=== PATIENT | female | born 1965 | race Two or more races ===

== ENCOUNTER 2019-06-26 07:22 | Outpatient (CLI) | payer OTHER | END 2019-06-26 23:59 | disposition home or self-care (01) | LOC: RAD 07:22 | DX: Z11.1 Encounter for screening for respiratory tuberculosis (principal); Z87.891 Personal history of nicotine dependence | CPT/HCPCS: 71045 ==

== ENCOUNTER 2019-09-18 11:32 | Outpatient (CLI) | payer OTHER ==
[2019-09-18 12:51] LABS: BASOPHILS % (AUTO) 0.4 % (0-1); EOSINOPHILS # (AUTO) 0.1 X10'3 (0-0.9); HEMATOCRIT 43.9 % (35.0-45.0); HEMOGLOBIN 14.7 g/dl (12.0-16.0); LYMPHOCYTES % (AUTO) 48.5 % (21-51); MEAN CORPUSCULAR HEMOGLOBIN 29.7 PG (27.0-31.0); MEAN CORPUSCULAR HGB CONC 33.5 g/dL (33.0-36.5); MEAN CORPUSCULAR VOLUME 88.8 FL (78-98); MEAN PLATELET VOLUME 8.2 FL (7.4-10.4); MONOCYTES # (AUTO) 0.4 X10'3 (0-0.9); MONOCYTES % (AUTO) 6.6 % (2-12); NEUTROPHILS # (AUTO) 2.6 X10'3 (1.8-7.7); NEUTROPHILS % (AUTO) 42.5 % (42-75); PLATELET COUNT 298 X10'3 (140-440); RED BLOOD COUNT 4.94 X10'6 (4.20-5.60); WHITE BLOOD COUNT 6.2 X10'3 (4.5-11.0)
[2019-09-18 12:56] LABS: CLARITY,URINE CLEAR (Clear); COLOR,URINE STRAW (Yellow); GLUCOSE, URINE NEGATIVE (Neg); KETONES,URINE NEGATIVE (Neg); LEUKOCYTE ESTERASE ,URINE NEGATIVE (Neg); NITRITES, URINE NEGATIVE (Neg); OCCULT BLOOD,URINE NEGATIVE (Neg); PH,URINE 6.5 (4.8-8.0); PROTEIN,URINE NEGATIVE (Neg); UROBILINOGEN,URINE 0.2 E.U/dL (0.2-1.0)
[2019-09-18 12:57] LABS: UA COLLECTION TYPE CLN CATCH MIDSTREAM
[2019-09-18 13:16] LABS: ALANINE AMINOTRANSFERASE 48 U/L (12-78); ALKALINE PHOSPHATASE 72 IU/L (46-116); ANION GAP 8 (8-16); ASPARTATE AMINO TRANSFERASE 27 U/L (10-37); BILIRUBIN,TOTAL 0.4 MG/DL (0.1-1.0); BLOOD UREA NITROGEN 12 MG/DL (7-18); CHLORIDE 106 MMOL/L (99-107); CHOL/HDL RATIO 3.9 (0.00-4.99); CHOLESTEROL 109 MG/DL (0-200); CREATININE 0.75 MG/DL (0.40-0.90); GLUCOSE 110 MG/DL (70-104); HDL CHOLESTEROL 28 MG/DL (35-60); LDL CHOLESTEROL 71 MG/DL (50-100); POTASSIUM 3.7 MMOL/L (3.5-5.1); SODIUM 144 MMOL/L (135-145); TOTAL CARBON DIOXIDE 30.3 MMOL/L (24-32); TOTAL PROTEIN 7.9 G/DL (6.4-8.2); TRIGLYCERIDES 96 MG/DL (20-135); eGFR 80 ML/MIN
== END 2019-09-18 23:59 | disposition home or self-care (01) ==
LOC: RAD 11:32
PROVIDERS: ATTEND Family Medicine
DX: S83.281A Other tear of lateral meniscus, current injury, right knee, initial encounter (principal); M75.101 Unspecified rotator cuff tear or rupture of right shoulder, not specified as traumatic; M17.11 Unilateral primary osteoarthritis, right knee; M25.461 Effusion, right knee; G47.30 Sleep apnea, unspecified; E07.9 Disorder of thyroid, unspecified; Z68.41 Body mass index [BMI] 40.0-44.9, adult; K75.0 Abscess of liver; Z76.89 Persons encountering health services in other specified circumstances; X58.XXXA Exposure to other specified factors, initial encounter; Y93.89 Activity, other specified; Y92.89 Other specified places as the place of occurrence of the external cause; Y99.8 Other external cause status
CPT/HCPCS: 36415; 73221; 73721; 80053; 80061; 81003; 84436; 84443; 85025

== ENCOUNTER 2020-03-17 11:49 | Day surgery (SDC) | payer BC ==
[2020-03-11 10:27] LABS: BASOPHILS % (AUTO) 0.5 % (0-1); EOSINOPHILS # (AUTO) 0.1 X10'3 (0-0.9); EOSINOPHILS % (AUTO) 1.9 % (0-6); LYMPHOCYTES # (AUTO) 3.2 X10'3 (1.1-4.8); LYMPHOCYTES % (AUTO) 47.4 % (21-51); MEAN CORPUSCULAR HEMOGLOBIN 30.2 PG (27.0-31.0); MEAN CORPUSCULAR HGB CONC 33.3 g/dL (33.0-36.5); MEAN CORPUSCULAR VOLUME 90.8 FL (78-98); MEAN PLATELET VOLUME 8.3 FL (7.4-10.4); MONOCYTES # (AUTO) 0.6 X10'3 (0-0.9); MONOCYTES % (AUTO) 9.3 % (2-12); NEUTROPHILS # (AUTO) 2.8 X10'3 (1.8-7.7); NEUTROPHILS % (AUTO) 40.9 % (42-75); PRE OP HEMATOCRIT 44.1 % (35.0-45.0); PRE OP HEMOGLOBIN 14.7 g/dL (12.0-16.0); PRE OP PLATELET COUNT 265 X10'3 (140-440); RED BLOOD COUNT 4.86 X10'6 (4.20-5.60); RED CELL DISTRIBUTION WIDTH 14.2 % (11.5-14.5)
[2020-03-11 10:31] LABS: ALBUMIN 4.1 G/DL (3.4-5.0); ALKALINE PHOSPHATASE 62 IU/L (46-116); BLOOD UREA NITROGEN 17 MG/DL (7-18); BUN/CREATININE RATIO 19.5 (6.6-38.0); CHLORIDE 104 MMOL/L (99-107); CREATININE 0.87 MG/DL (0.40-0.90); PRE OP ALT 43 U/L (30-65); PRE OP ANION GAP 8 (8-16); PRE OP AST 26 U/L (10-37); PRE OP BILIRUB, TOTAL 0.4 MG/DL (0.0-1.0); PRE OP GLUCOSE 117 MG/DL (70-104); PRE OP SODIUM 141 MMOL/L (135-145); TOTAL CARBON DIOXIDE 29.5 MMOL/L (24-32); TOTAL PROTEIN 8.2 G/DL (6.4-8.2); eGFR 68 ML/MIN
[~2020-03-17] VITALS: Ht 170.2 cm; Wt 116.2 kg
[2020-03-17] VITALS (14 sets, daily range): BP systolic 118–145; BP diastolic 56–81
[~2020-03-17 11:49] MED LIST: ALLO100T PO; ASPI-1053 PO; CHOL400T57 PO; FURO-150 PO; LACT1CAP65 PO; LEVO100T PO; LEVO137T24 PO; MAGN400C PO; MULT-1085 PO; NABU500T2 PO; NIA500ERT PO; OMEG1CAP2 PO; ORPH100T2 PO; PSYL3.4P5 PO; acetaminophen 325mg tablet PO ONE; ascorbic acid 500mg tablet PO ONE; celeCOXIB 100mg capsule PO ONE; famotidine 20mg tablet PO ONE; gabapentin 300mg capsule PO ONE; levoFLOXACIN-Levaquin 750MG/D5 150 ML IV ONE; metoclopramide 5 mg/ml inj IV ONE; ringers solution, lacted 1,000 ML IV SCH; vancomycin 1,500 MG in NS 300ml IV soln IV ONE
[2020-03-17] MEDS ORDERED: BUPIVAcaine/PF 2.5 mg/ml (0.25%) 30ml vial ONE (15:20)
[2020-03-17] MEDS ORDERED: triamcinolone acetonide 40mg/ml inj ONE (15:20)
[2020-03-17] MEDS ORDERED: fentaNYL/PF 50MCG/1 ML 2ML syringe ONE (15:31)
[2020-03-17] MEDS ORDERED: midazolam 2 mg/2 ml injection ONE (15:31)
[2020-03-17] MEDS ORDERED: sevoflurane 250ml liquid IH ONE (15:34)
[2020-03-17] MEDS ORDERED: propofol inj 20 ML IV ONE (16:02)
[2020-03-17] MEDS ORDERED: ondansetron/PF 4mg/2ml inj ONE (16:02)
[2020-03-17] MEDS ORDERED: LIDOcaine 2% (20mg/ml) 5ml vial ONE (16:02)
[2020-03-17] MEDS ORDERED: dexamethasone sod phosphate 4mg/ml inj. ONE (16:02)
--- NOTE | 2020-03-17 16:34 | NUR ---
Received from OR via [facility], accompanied by Anesthesiologist Cecilia and report given by Anesthesiolgist. Right knee wrapped, good pedal pulses. O2 sats 98% on 10L and all VS WNL. 20G IV LR IVF at 100cc/hr. Will continue to monirot clsoely, ice to right knee.
[2020-03-17] MEDS ORDERED: ringers solution, lacted 1,000 ML IV SCH (16:45)
[2020-03-17] MEDS ORDERED: proCHLORperazine 10 MG/2 ml inj IV PRN (16:45)
[2020-03-17] MEDS ORDERED: morphine 4 MG/ML inj SYRINge IV PRN (16:45)
[2020-03-17] MEDS ORDERED: ondansetron/PF 4mg/2ml inj IV PRN (16:45)
[2020-03-17] MEDS ORDERED: meperidine/PF 25mg/ml syringe IV PRN ×2 (16:45)
[2020-03-17] MEDS ORDERED: morphine 2 MG/ML inj. syringe IV PRN (16:45)
[2020-03-17] MEDS: meperidine/PF 25mg/ml syringe IV PRN ×2 (17:10→17:44)
--- NOTE | 2020-03-17 19:00 | NUR ---
called from pharmacy to state that the prescription needed clarification. I spoke with pharmacist and then attempted to call Dr Matson multiple times before pharmacy closed at 1900 to clarify order but he did not answer the phone. I then spoke with Dr Mccarty who gave me a new order for the same medication with the correct clarification to call in to the pharmacy which I did. Will await call back from Dr Matson to explain what happened. Dr Mccarty also states he will relay the rectification and thankful to be able to help. Now awaiting to arrive at hospital for pickup after meds are filled.
--- NOTE | 2020-03-17 19:24 | NUR ---
PATIENT A&OX4, DENIES PAIN, V/S WNL, NEUROVASCULAR CHECKS INTACT, 20G PIV D/C WITH NO COMPLICATIONS OBSERVED, DRESSING TO RIGHT KNEE CDI W/ICE PACK, SCD OFF. I HAVE REVIEWED D/C INSTRUCTIONS WITH PATIENT AND FAMILY AND THEY HAVE VERBALIZED UNDERSTANDING. PATIENT D/C HOME WITH ALL BELONGINGS AND FAMILY GAVE TRANSPORT HOME.
== END 2020-03-17 19:24 | disposition home or self-care (01) ==
LOC: PAS 11:49
PROVIDERS: ATTEND Orthopaedic Surgery
DX: S83.231A Complex tear of medial meniscus, current injury, right knee, initial encounter (principal); S83.281A Other tear of lateral meniscus, current injury, right knee, initial encounter; M94.261 Chondromalacia, right knee; E03.9 Hypothyroidism, unspecified; M10.9 Gout, unspecified; G47.33 Obstructive sleep apnea (adult) (pediatric); K21.9 Gastro-esophageal reflux disease without esophagitis; M17.0 Bilateral primary osteoarthritis of knee; E66.01 Morbid (severe) obesity due to excess calories; Z68.41 Body mass index [BMI] 40.0-44.9, adult; Z79.899 Other long term (current) drug therapy; Z79.82 Long term (current) use of aspirin; Z88.0 Allergy status to penicillin; Z88.2 Allergy status to sulfonamides; Z88.5 Allergy status to narcotic agent; Z90.49 Acquired absence of other specified parts of digestive tract; Z98.890 Other specified postprocedural states; Z11.59 Encounter for screening for other viral diseases; Z87.891 Personal history of nicotine dependence; X58.XXXA Exposure to other specified factors, initial encounter; Y93.89 Activity, other specified; Y92.89 Other specified places as the place of occurrence of the external cause; Y99.8 Other external cause status
CPT/HCPCS: 29873; 29879; 29880; 36415; 80053; 82948; 85025; J1100; J1956; J2001; J2175; J2250; J2405; J2704; J2765; J3010; J3301; J3370; J3490; J7040; U0003; A4215; A4618; A6250; A6449; A7000; J7120

== ENCOUNTER → 2020-04-08 | Outpatient (CLI) | payer BC ==
[~2020-04-08] MED LIST changes: -acetaminophen 325mg tablet PO ONE; -ascorbic acid 500mg tablet PO ONE; -celeCOXIB 100mg capsule PO ONE; -famotidine 20mg tablet PO ONE; -gabapentin 300mg capsule PO ONE; -levoFLOXACIN-Levaquin 750MG/D5 150 ML IV ONE; -metoclopramide 5 mg/ml inj IV ONE; -ringers solution, lacted 1,000 ML IV SCH; -vancomycin 1,500 MG in NS 300ml IV soln IV ONE
== END | disposition home or self-care (01) ==
LOC: LAB 11:43
PROVIDERS: ATTEND Family Medicine
DX: E03.9 Hypothyroidism, unspecified (principal); E07.9 Disorder of thyroid, unspecified
CPT/HCPCS: 36415; 84439; 84443

== ENCOUNTER 2020-04-15 08:13 | Day surgery (SDC) | payer BC ==
[~2020-04-15] VITALS: Ht 170.2 cm; Wt 115.0 kg
[2020-04-15 08:17] VITALS: BP 133/65
[2020-04-15] MEDS ORDERED: MIDAZolam 5mg/5ml vial ONE (08:22)
[2020-04-15] MEDS ORDERED: fentaNYL/PF 50MCG/1 ML 2ML syringe ONE (08:22)
[2020-04-15] MEDS ORDERED: POLY119P2 PO (08:33)
[2020-04-15] MEDS ORDERED: POTA10CA44 PO (08:35)
[2020-04-15] MEDS ORDERED: HYDR12.55 PO (08:36)
[2020-04-15] MEDS ORDERED: FLUT9.9S INH (08:37)
[2020-04-15 09:53] VITALS: BP 124/71
[2020-04-15 10:03] VITALS: BP 116/73
[2020-04-15 10:13] VITALS: BP 124/75
[2020-04-15 10:23] VITALS: BP 127/77
== END 2020-04-15 10:45 | disposition home or self-care (01) ==
LOC: GI LAB 08:13
PROVIDERS: ATTEND Internal Medicine Gastroenterology
DX: Z12.11 Encounter for screening for malignant neoplasm of colon (principal); D12.3 Benign neoplasm of transverse colon; K62.1 Rectal polyp; K64.8 Other hemorrhoids; Z86.010 Personal history of colon polyps
CPT/HCPCS: 45380; 45385; 99152; C1773; J2250; J3010; J7040; 99153; A4620

== ENCOUNTER → 2020-05-27 | Outpatient (CLI) | payer BC ==
[~2020-05-27] MED LIST changes: +FLUT9.9S INH; +HYDR12.55 PO; +NABU-134 PO; -NABU500T2 PO; +POLY119P2 PO; +POTA10CA44 PO; -PSYL3.4P5 PO
== END | disposition home or self-care (01) ==
LOC: CARD DIAG 12:39
PROVIDERS: ATTEND Family Medicine
DX: I08.3 Combined rheumatic disorders of mitral, aortic and tricuspid valves (principal); I65.23 Occlusion and stenosis of bilateral carotid arteries; I77.1 Stricture of artery; I10 Essential (primary) hypertension
CPT/HCPCS: 93306; 93880

== ENCOUNTER 2020-07-29 11:45 | Outpatient (CLI) | payer BC ==
[2020-07-29 12:06] LABS: MEAN PLATELET VOLUME 7.8 FL (7.4-10.4)
[2020-07-29 12:07] LABS: BASOPHILS % (AUTO) 0.6 % (0-1); EOSINOPHILS # (AUTO) 0.1 X10'3 (0-0.9); EOSINOPHILS % (AUTO) 1.4 % (0-6); HEMATOCRIT 43.6 % (35.0-45.0); HEMOGLOBIN 14.7 g/dl (12.0-16.0); LYMPHOCYTES % (AUTO) 41.6 % (21-51); MEAN CORPUSCULAR HEMOGLOBIN 29.9 PG (27.0-31.0); MEAN CORPUSCULAR HGB CONC 33.7 g/dL (33.0-36.5); MONOCYTES # (AUTO) 0.6 X10'3 (0-0.9); MONOCYTES % (AUTO) 8.7 % (2-12); NEUTROPHILS # (AUTO) 3.4 X10'3 (1.8-7.7); NEUTROPHILS % (AUTO) 47.7 % (42-75); PLATELET COUNT 283 X10'3 (140-440); RED CELL DISTRIBUTION WIDTH 13.5 % (11.5-14.5); WHITE BLOOD COUNT 7.2 X10'3 (4.5-11.0)
[2020-07-29 12:29] LABS: ALANINE AMINOTRANSFERASE 45 U/L (12-78); ALBUMIN 3.9 G/DL (3.4-5.0); ALKALINE PHOSPHATASE 62 IU/L (46-116); ANION GAP 8 (8-16); ASPARTATE AMINO TRANSFERASE 26 U/L (10-37); BILIRUBIN,TOTAL 0.3 MG/DL (0.1-1.0); BLOOD UREA NITROGEN 25 MG/DL (7-18); BUN/CREATININE RATIO 28.1 (6.6-38.0); CALCIUM 9.9 MG/DL (8.5-10.1); CHLORIDE 106 MMOL/L (99-107); CREATININE 0.89 MG/DL (0.40-0.90); GLUCOSE 149 MG/DL (70-104); POTASSIUM 3.8 MMOL/L (3.5-5.1); SODIUM 143 MMOL/L (135-145); TOTAL CARBON DIOXIDE 29.5 MMOL/L (24-32); TOTAL PROTEIN 7.9 G/DL (6.4-8.2); eGFR 66 ML/MIN
== END 2020-07-29 23:59 | disposition home or self-care (01) ==
LOC: LAB 11:45
PROVIDERS: ATTEND Internal Medicine
DX: R76.12 Nonspecific reaction to cell mediated immunity measurement of gamma interferon antigen response without active tuberculosis (principal)
CPT/HCPCS: 80053; 85025

== ENCOUNTER 2020-08-27 10:08 | Outpatient (CLI) | payer BC ==
[2020-08-27 11:01] LABS: BASOPHILS % (AUTO) 0.6 % (0-1); EOSINOPHILS # (AUTO) 0.2 X10'3 (0-0.9); EOSINOPHILS % (AUTO) 2.9 % (0-6); HEMATOCRIT 45.6 % (35.0-45.0); HEMOGLOBIN 15.5 g/dl (12.0-16.0); MEAN CORPUSCULAR HEMOGLOBIN 30.3 PG (27.0-31.0); MEAN CORPUSCULAR HGB CONC 33.9 g/dL (33.0-36.5); MEAN CORPUSCULAR VOLUME 89.3 FL (78-98); MEAN PLATELET VOLUME 8.2 FL (7.4-10.4); MONOCYTES # (AUTO) 0.6 X10'3 (0-0.9); MONOCYTES % (AUTO) 10.6 % (2-12); NEUTROPHILS # (AUTO) 2.5 X10'3 (1.8-7.7); NEUTROPHILS % (AUTO) 47.9 % (42-75); PLATELET COUNT 287 X10'3 (140-440); RED CELL DISTRIBUTION WIDTH 13.6 % (11.5-14.5); WHITE BLOOD COUNT 5.2 X10'3 (4.5-11.0)
[2020-08-27 11:18] LABS: ALANINE AMINOTRANSFERASE 35 U/L (12-78); ALBUMIN 3.9 G/DL (3.4-5.0); ALBUMIN/GLOBULIN RATIO 0.9 (1.1-1.5); ALKALINE PHOSPHATASE 73 IU/L (46-116); ANION GAP 9 (8-16); ASPARTATE AMINO TRANSFERASE 30 U/L (10-37); BILIRUBIN,TOTAL 0.6 MG/DL (0.1-1.0); BLOOD UREA NITROGEN 10 MG/DL (7-18); BUN/CREATININE RATIO 13.3 (6.6-38.0); CALCIUM 8.8 MG/DL (8.5-10.1); CHLORIDE 104 MMOL/L (99-107); CREATININE 0.75 MG/DL (0.40-0.90); GLUCOSE 150 MG/DL (70-104); POTASSIUM 4.3 MMOL/L (3.5-5.1); SODIUM 139 MMOL/L (135-145); TOTAL PROTEIN 8.2 G/DL (6.4-8.2); eGFR 80 ML/MIN
== END 2020-08-27 23:59 | disposition home or self-care (01) ==
LOC: LAB 10:08
PROVIDERS: ATTEND Family Medicine
DX: I10 Essential (primary) hypertension (principal); R76.12 Nonspecific reaction to cell mediated immunity measurement of gamma interferon antigen response without active tuberculosis
CPT/HCPCS: 36415; 80053; 84439; 84443; 85025

== ENCOUNTER 2021-02-10 09:17 | Outpatient (CLI) | payer BC ==
[~2021-02-10 09:17] MED LIST changes: -NABU-134 PO; +NABU-139 PO
[2021-02-10 09:59] LABS: BASOPHILS % (AUTO) 0.5 % (0-1); EOSINOPHILS # (AUTO) 0.2 X10'3 (0-0.9); EOSINOPHILS % (AUTO) 2.5 % (0-6); HEMATOCRIT 43.7 % (35.0-45.0); HEMOGLOBIN 14.6 g/dl (12.0-16.0); LYMPHOCYTES # (AUTO) 2.8 X10'3 (1.1-4.8); LYMPHOCYTES % (AUTO) 41.9 % (21-51); MEAN CORPUSCULAR HEMOGLOBIN 29.8 PG (27.0-31.0); MEAN CORPUSCULAR HGB CONC 33.3 g/dL (33.0-36.5); MEAN CORPUSCULAR VOLUME 89.5 FL (78-98); MEAN PLATELET VOLUME 8.2 FL (7.4-10.4); MONOCYTES # (AUTO) 0.7 X10'3 (0-0.9); MONOCYTES % (AUTO) 10.2 % (2-12); NEUTROPHILS % (AUTO) 44.9 % (42-75); PLATELET COUNT 252 X10'3 (140-440); RED BLOOD COUNT 4.89 X10'6 (4.20-5.60); RED CELL DISTRIBUTION WIDTH 14.4 % (11.5-14.5); WHITE BLOOD COUNT 6.7 X10'3 (4.5-11.0)
[2021-02-10 10:03] LABS: CLARITY,URINE CLEAR (Clear); COLOR,URINE YELLOW (Yellow); GLUCOSE, URINE NEGATIVE (Neg); KETONES,URINE NEGATIVE (Neg); LEUKOCYTE ESTERASE ,URINE NEGATIVE (Neg); NITRITES, URINE NEGATIVE (Neg); OCCULT BLOOD,URINE TRACE-LYSED (Neg); PH,URINE 5.5 (4.8-8.0); PROTEIN,URINE NEGATIVE (Neg); UROBILINOGEN,URINE 0.2 E.U/dL (0.2-1.0)
[2021-02-10 10:22] LABS: ALANINE AMINOTRANSFERASE 71 U/L (12-78); ALBUMIN 3.9 G/DL (3.4-5.0); ALKALINE PHOSPHATASE 61 IU/L (46-116); ANION GAP 9 (8-16); ASPARTATE AMINO TRANSFERASE 49 U/L (10-37); BILIRUBIN,TOTAL 0.4 MG/DL (0.1-1.0); BLOOD UREA NITROGEN 19 MG/DL (7-18); BUN/CREATININE RATIO 23.8 (6.6-38.0); CHLORIDE 104 MMOL/L (99-107); CHOL/HDL RATIO 5.8 (0.00-4.99); CHOLESTEROL 140 MG/DL (0-200); GLUCOSE 132 MG/DL (70-104); HDL CHOLESTEROL 24 MG/DL (35-60); LDL CHOLESTEROL 88 MG/DL (50-100); SODIUM 140 MMOL/L (135-145); TOTAL CARBON DIOXIDE 27.3 MMOL/L (24-32); TOTAL PROTEIN 7.7 G/DL (6.4-8.2); TRIGLYCERIDES 177 MG/DL (20-135); eGFR 74 ML/MIN
[2021-02-10 10:23] LABS: UA COLLECTION TYPE CLN CATCH MIDSTREAM
[2021-02-10 10:24] LABS: BACTERIA,URINE NONE SEEN /HPF (Neg); MUCUS STRANDS FEW /LPF (Neg); RBC,URINE NONE SEEN /HPF (0-2); SQUAMOUS EPITHELIAL CELL,UR FEW /LPF (FEW); WBC,URINE NONE SEEN /HPF (0-4)
== END 2021-02-10 23:59 | disposition home or self-care (01) ==
LOC: LAB 09:17
PROVIDERS: ATTEND Family Medicine
DX: F41.9 Anxiety disorder, unspecified (principal)
CPT/HCPCS: 36415; 80053; 80061; 81001; 84439; 84443; 85025

== ENCOUNTER 2021-04-26 15:13 | Outpatient (CLI) | payer BC | END 2021-04-26 23:59 | disposition home or self-care (01) | LOC: RAD 15:13 | PROVIDERS: ATTEND Family Medicine | DX: N23 Unspecified renal colic (principal) | CPT/HCPCS: 76770 ==

== ENCOUNTER 2021-06-16 12:58 | Outpatient (CLI) | payer BC ==
[2021-06-16 13:52] LABS: ALANINE AMINOTRANSFERASE 95 U/L (12-78); ALBUMIN 3.9 G/DL (3.4-5.0); ALBUMIN/GLOBULIN RATIO 0.9 (1.1-1.5); ALKALINE PHOSPHATASE 72 IU/L (46-116); ANION GAP 7 (8-16); ASPARTATE AMINO TRANSFERASE 75 U/L (10-37); BILIRUBIN,TOTAL 0.5 MG/DL (0.1-1.0); BLOOD UREA NITROGEN 12 MG/DL (7-18); BUN/CREATININE RATIO 14.1 (6.6-38.0); CALCIUM 8.8 MG/DL (8.5-10.1); CHLORIDE 105 MMOL/L (99-107); CREATININE 0.85 MG/DL (0.40-0.90); FERRITIN 287 NG/ML (8-252); GLUCOSE 113 MG/DL (70-104); POTASSIUM 3.9 MMOL/L (3.5-5.1); SODIUM 141 MMOL/L (135-145); TOTAL CARBON DIOXIDE 29.5 MMOL/L (24-32); TOTAL PROTEIN 8.3 G/DL (6.4-8.2); eGFR 69 ML/MIN
== END 2021-06-16 23:59 | disposition home or self-care (01) ==
LOC: LAB 12:58
PROVIDERS: ATTEND Family Medicine
DX: R74.01 Elevation of levels of liver transaminase levels (principal)
CPT/HCPCS: 36415; 80053; 82306; 82607; 82728; 82746

== ENCOUNTER 2022-02-16 07:46 | Outpatient (CLI) | payer BC ==
[2022-02-16 08:14] LABS: BASOPHILS % (AUTO) 0.6 % (0-1); CLARITY,URINE CLEAR (Clear); COLOR,URINE YELLOW (Yellow); EOSINOPHILS # (AUTO) 0.2 X10'3 (0-0.9); EOSINOPHILS % (AUTO) 2.6 % (0-6); GLUCOSE, URINE NEGATIVE (Neg); HEMATOCRIT 42.1 % (35.0-45.0); HEMOGLOBIN 14.4 g/dl (12.0-16.0); KETONES,URINE NEGATIVE (Neg); LEUKOCYTE ESTERASE ,URINE NEGATIVE (Neg); LYMPHOCYTES % (AUTO) 39.5 % (21-51); MEAN CORPUSCULAR HGB CONC 34.1 g/dL (33.0-36.5); MEAN CORPUSCULAR VOLUME 87.9 FL (78-98); MEAN PLATELET VOLUME 8.1 FL (7.4-10.4); MONOCYTES # (AUTO) 0.7 X10'3 (0-0.9); MONOCYTES % (AUTO) 9.6 % (2-12); NEUTROPHILS # (AUTO) 3.6 X10'3 (1.8-7.7); NEUTROPHILS % (AUTO) 47.7 % (42-75); NITRITES, URINE NEGATIVE (Neg); OCCULT BLOOD,URINE TRACE-INTACT (Neg); PH,URINE 6.5 (4.8-8.0); PLATELET COUNT 253 X10'3 (140-440); PROTEIN,URINE NEGATIVE (Neg); RED BLOOD COUNT 4.79 X10'6 (4.20-5.60); RED CELL DISTRIBUTION WIDTH 13.8 % (11.5-14.5); UROBILINOGEN,URINE 0.2 E.U/dL (0.2-1.0); WHITE BLOOD COUNT 7.6 X10'3 (4.5-11.0)
[2022-02-16 08:19] LABS: UA COLLECTION TYPE VOIDED
[2022-02-16 08:20] LABS: BACTERIA,URINE FEW /HPF (Neg); MUCUS STRANDS FEW /LPF (Neg); RBC,URINE 0-2 /HPF (0-2); SQUAMOUS EPITHELIAL CELL,UR MODERATE /LPF (FEW); WBC,URINE 0-4 /HPF (0-4)
[2022-02-16 08:42] LABS: ALANINE AMINOTRANSFERASE 71 U/L (12-78); ALBUMIN 3.6 G/DL (3.4-5.0); ALBUMIN/GLOBULIN RATIO 0.9 (1.1-1.5); ALKALINE PHOSPHATASE 65 IU/L (46-116); ANION GAP 6 (8-16); ASPARTATE AMINO TRANSFERASE 46 U/L (10-37); BILIRUBIN,TOTAL 0.4 MG/DL (0.1-1.0); BLOOD UREA NITROGEN 15 MG/DL (7-18); BUN/CREATININE RATIO 18.5 (6.6-38.0); CALCIUM 8.9 MG/DL (8.5-10.1); CHLORIDE 105 MMOL/L (99-107); CHOL/HDL RATIO 4.2 (0.00-4.99); CHOLESTEROL 130 MG/DL (0-200); CREATININE 0.81 MG/DL (0.40-0.90); GLUCOSE 140 MG/DL (70-104); HDL CHOLESTEROL 31 MG/DL (35-60); LDL CHOLESTEROL 78 MG/DL (50-100); POTASSIUM 3.9 MMOL/L (3.5-5.1); SODIUM 138 MMOL/L (135-145); TOTAL CARBON DIOXIDE 27.3 MMOL/L (24-32); TOTAL PROTEIN 7.4 G/DL (6.4-8.2); TRIGLYCERIDES 95 MG/DL (20-135); eGFR 73 ML/MIN
[2022-02-16 09:12] LABS: HEMOGLOBIN A1C 6.9 % (4.5-6.2)
== END 2022-02-16 23:59 | disposition home or self-care (01) ==
LOC: LAB 07:46
PROVIDERS: ATTEND Family Medicine
DX: G47.30 Sleep apnea, unspecified (principal); I10 Essential (primary) hypertension; R73.9 Hyperglycemia, unspecified; R42 Dizziness and giddiness; E03.9 Hypothyroidism, unspecified
CPT/HCPCS: 36415; 80053; 80061; 81001; 82306; 82607; 82746; 83036; 84439; 84443; 85025

== ENCOUNTER 2022-03-16 12:23 | Outpatient (CLI) | payer BC | END 2022-03-16 23:59 | disposition home or self-care (01) | LOC: RAD 12:23 | PROVIDERS: ATTEND Nurse Practitioner | DX: R59.0 Localized enlarged lymph nodes (principal) | CPT/HCPCS: 76881 ==

== ENCOUNTER 2022-03-30 10:37 | Outpatient (CLI) | payer BC ==
[2022-03-30] MEDS ORDERED: iohexol 350MG/ML 100ml bottle IV ONE (11:16)
== END 2022-03-30 23:59 | disposition home or self-care (01) ==
LOC: RAD 10:37
PROVIDERS: ATTEND Nurse Practitioner
DX: R59.9 Enlarged lymph nodes, unspecified (principal); M47.812 Spondylosis without myelopathy or radiculopathy, cervical region
CPT/HCPCS: 70491; J3490; Q9967

== ENCOUNTER 2022-05-25 12:40 | Outpatient (CLI) | payer BC | END 2022-05-25 23:59 | disposition home or self-care (01) | LOC: RAD 12:40 | PROVIDERS: ATTEND Nurse Practitioner | DX: N93.9 Abnormal uterine and vaginal bleeding, unspecified (principal) | CPT/HCPCS: 76830; 76856; 93976 ==

== ENCOUNTER 2022-06-08 11:21 | Outpatient (CLI) | payer BC ==
[2022-06-08 12:29] LABS: ALANINE AMINOTRANSFERASE 42 U/L (12-78); ALBUMIN 3.6 G/DL (3.4-5.0); ALBUMIN/GLOBULIN RATIO 0.9 (1.1-1.5); ALKALINE PHOSPHATASE 66 IU/L (46-116); ANION GAP 8 (8-16); ASPARTATE AMINO TRANSFERASE 28 U/L (10-37); BILIRUBIN,TOTAL 0.4 MG/DL (0.1-1.0); BLOOD UREA NITROGEN 16 MG/DL (7-18); BUN/CREATININE RATIO 22.5 (6.6-38.0); CHLORIDE 104 MMOL/L (99-107); CHOLESTEROL 140 MG/DL (0-200); CREATININE 0.71 MG/DL (0.40-0.90); GLUCOSE 112 MG/DL (70-104); HDL CHOLESTEROL 35 MG/DL (35-60); LDL CHOLESTEROL 88 MG/DL (50-100); SODIUM 139 MMOL/L (135-145); TOTAL CARBON DIOXIDE 27.5 MMOL/L (24-32); TOTAL PROTEIN 7.5 G/DL (6.4-8.2); TRIGLYCERIDES 104 MG/DL (20-135); eGFR 85 ML/MIN
[2022-06-09 10:43] LABS: ESTRADIOL 12.2 pg/mL (.); FSH, SERUM 48.7 mIU/mL (.); LUTEINIZING HORMONE 27.3 mIU/mL (.)
== END 2022-06-08 23:59 | disposition home or self-care (01) ==
LOC: LAB 11:21
PROVIDERS: ATTEND Nurse Practitioner
DX: E11.9 Type 2 diabetes mellitus without complications (principal); I10 Essential (primary) hypertension; F41.9 Anxiety disorder, unspecified; Z78.0 Asymptomatic menopausal state; Z68.41 Body mass index [BMI] 40.0-44.9, adult
CPT/HCPCS: 36415; 80053; 80061; 82670; 83001; 83002; 83036; 84402; 84403; 84439; 84443

== ENCOUNTER 2022-11-13 14:34 | Outpatient (CLI) | payer BC ==
[~2022-11-13 14:34] MED LIST changes: -POTA10CA44 PO; +POTA10CA45 PO
== END 2022-11-13 23:59 | disposition home or self-care (01) ==
LOC: CARD DIAG 14:34
PROVIDERS: ATTEND Nurse Practitioner Family
DX: I08.1 Rheumatic disorders of both mitral and tricuspid valves (principal)
CPT/HCPCS: 93306

== ENCOUNTER 2022-11-16 09:19 | Outpatient (CLI) | payer BC | END 2022-11-16 23:59 | disposition home or self-care (01) | LOC: RAD 09:19 | PROVIDERS: ATTEND Otolaryngology | DX: R13.13 Dysphagia, pharyngeal phase (principal); K22.89 Other specified disease of esophagus | CPT/HCPCS: 74220 ==

== ENCOUNTER → 2023-08-30 | Outpatient (CLI) | payer BC ==
[~2023-08-30] MED LIST changes: -ORPH100T2 PO; +ORPH100T4 PO; -POTA10CA45 PO; +POTA10CA85 PO
[2023-08-30 09:43] LABS: ALANINE AMINOTRANSFERASE 31 U/L (12-78); ALBUMIN 3.5 G/DL (3.4-5.0); ALBUMIN/GLOBULIN RATIO 0.9 (1.1-1.5); ALKALINE PHOSPHATASE 78 IU/L (46-116); ANION GAP 6 (8-16); ASPARTATE AMINO TRANSFERASE 21 U/L (10-37); BILIRUBIN,TOTAL 0.3 MG/DL (0.1-1.0); BLOOD UREA NITROGEN 16 MG/DL (7-18); BUN/CREATININE RATIO 21.1 (10.0-20.0); CALCIUM 8.8 MG/DL (8.5-10.1); CHLORIDE 103 MMOL/L (99-107); CHOL/HDL RATIO 4.1 (0.00-4.99); CHOLESTEROL 131 MG/DL (0-200); CREATININE 0.76 MG/DL (0.40-0.90); GLUCOSE 111 MG/DL (70-104); HDL CHOLESTEROL 32 MG/DL (35-60); LDL CHOLESTEROL 76 MG/DL (50-100); POTASSIUM 4.4 MMOL/L (3.5-5.1); SODIUM 138 MMOL/L (135-145); THYROID STIMULATING HORMONE 2.85 ulU/ml (0.34-4.50); TOTAL PROTEIN 7.4 G/DL (6.4-8.2); TRIGLYCERIDES 124 MG/DL (20-135); eGFR 78 ML/MIN
== END | disposition home or self-care (01) ==
LOC: RAD 08:45
PROVIDERS: ATTEND Internal Medicine Endocrinology, Diabetes & Metabolism
DX: E11.9 Type 2 diabetes mellitus without complications (principal); E55.9 Vitamin D deficiency, unspecified; E78.5 Hyperlipidemia, unspecified
CPT/HCPCS: 36415; 80053; 80061; 82306; 84443